=== PATIENT | female | born 1960 | race Caucasian/White ===

== ENCOUNTER 2018-04-09 13:26 | Observation (INO) ==
--- NOTE | 2018-04-09 15:05 | Emergency Department Note ---
Disposition Clinical Impression: Pneumonia, Leukocytosis Disposition: Admitted As Inpatient Condition: Good General Adult HPI - General Chief complaint: ED Neuro Symptoms/Deficit Stated complaint: increased stutter? Time Seen by Provider: 04/09/18 13:50 Source: EMS Limitations: altered mental status, physical limitation, age - History of Present Illness Pain Scale: 7 - Related Data Home Medications Medication Instructions Recorded Confirmed Estradiol [Estrace] 1 mg PO DAILY 12/22/16 04/09/18 Oxycodone HCl/Acetaminophen 1 tab PO Q4H PRN 12/22/16 04/09/18 [Endocet 5-325 Tablet] Paliperidone Palmitate [Invega 156 mg PO QMONTH 04/09/18 04/09/18 Sustenna] Paliperidone [Paliperidone ER] 3 mg PO DAILY 04/09/18 04/09/18 Propranolol [Inderal] 10 mg PO BID 04/09/18 04/09/18 predniSONE [PredniSONE] 10 mg PO DAILY 04/09/18 04/09/18 Previous Rx's Medication Instructions Recorded Albuterol Sulfate [Ventolin Hfa] 2 puff IH Q6H PRN #1 hfa.aer.ad 01/15/18 Cefdinir [Omnicef] 300 mg PO BID #14 capsule 01/15/18 Dicyclomine [Bentyl] 10 mg PO TID #90 capsule 01/15/18 Divalproex (12 HR) [Depakote (12 1,500 mg PO HS #30 tablet. 01/15/18 HR)] Hyoscyamine SL [Levsin Sl] 0.125 mg SL Q4HR PRN #60 tab.subl 01/15/18 Levothyroxine Sodium 50 mcg PO QAM #30 tablet 01/15/18 Omeprazole [PriLOSEC] 40 mg PO BID #30 capsule. 01/15/18 Ondansetron [Zofran] 8 mg PO Q8HR PRN #10 tablet 01/15/18 OxyCODONE/APAP 5/325 [Percocet 1 each PO BID PRN 7 Days #14 tablet 01/15/18 5/325 MG] Promethazine [Phenergan] 25 mg PO Q8HR PRN #15 tablet 01/15/18 Quetiapine Fumarate [Seroquel] 100 mg PO DAILY #30 tablet 01/15/18 Quetiapine Fumarate [Seroquel] 250 mg PO HS #30 tablet 01/15/18 hydrOXYzine pamoate [HydrOXYzine 25 mg PO TID PRN #30 capsule 01/15/18 Pamoate] lamoTRIgine [Lamotrigine] 200 mg PO DAILY #30 tablet 01/15/18 Lidocaine Patch [Lidoderm 5% patch] 1 - 2 each TP DAILY PRN #20 02/25/18 adh..patch Allergies Allergy/AdvReac Type Severity Reaction Status Date / Time Sulfa (Sulfonamide Allergy See Verified 02/03/18 19:43 Antibiotics) Comments naproxen [From Aleve] AdvReac Itching Verified 02/03/18 19:43 Past Medical History - Past Medical History Medical history: Reports: asthma, COPD, GERD, hypertension, myocardial infarction, renal disease, thyroid disease, other Surgical history: Reports: cholecystectomy, hysterectomy Psychiatric history: Reports: bipolar, schizophrenia, previous psychiatric hospitalization FLEXIBLE BABYSITTER history: Reports: no FLEXIBLE BABYSITTER history - Social History Smoking Status: Current every day smoker Smokeless Tobacco Status: No Alcohol use: Reports: none Drug use: Reports: none Physical Exam - General Limitations: altered mental status, physical limitation, age General appearance: lethargic Course Vital Signs Temperature 97.7 F 04/09/18 13:34 Pulse Rate 80 04/09/18 13:34 Respiratory Rate 16 04/09/18 13:34 Blood Pressure 119/65 04/09/18 13:34 O2 Sat by Pulse Oximetry 96 04/09/18 13:34 Temperature 97.7 F 04/09/18 13:34 Pulse Rate 67 04/09/18 15:23 Respiratory Rate 16 04/09/18 15:23 Blood Pressure 105/75 04/09/18 15:23 O2 Sat by Pulse Oximetry 96 04/09/18 15:23 Oxygen Delivery Oxygen Delivery Room Air Medical Decision Making - Lab Data Result diagrams: 04/09/18 15:14 04/09/18 15:14 Lab Results 04/09/18 04/09/18 04/09/18 Range/Units 15:14 15:14 15:14 WBC 17.1 H (4.3-11.1) K/mcL RBC 4.21 (3.82-4.97) M/mcL Hgb 12.5 (11.5-15.4) g/dL Hct 39.2 (35.3-44.9) % MCV 93.1 (83.0-100.0) fL MCH 29.7 (28.0-33.3) pg MCHC 31.9 (31.6-35.5) g/dL RDW 14.2 (11.5-14.5) % Plt Count 281 (140-400) K/mcL MPV 9.1 L (9.4-12.4) fL Immature Gran % 0.5 (0-4) % Seg Neutrophils % 91.1 % Lymphocytes % 6.2 % Monocytes % 2.0 % Eosinophils % 0.1 % Basophils % 0.1 % Neutrophils # 15.6 H (1.6-8.9) K/mcL Lymphocytes # 1.1 (0.6-4.6) K/mcL Monocytes # 0.3 (0.0-1.3) K/mcL Eosinophils # 0.0 (0.0-0.6) K/mcL Basophils # 0.0 (0.0-0.2) K/mcL PT 10.9 (9.4-12.1) Seconds INR 1.0 Sodium 136 (136-145) mEq/L Potassium 4.9 (3.5-5.1) mEq/L Chloride 105 (98-107) mEq/L Carbon Dioxide 27 (23-29) mEq/L BUN 12 (6-20) mg/dL Creatinine 0.76 (0.60-1.20) mg/dL Est GFR ( Amer) > 60 (> 60) Est GFR (Non-Af Amer) > 60 (> 60) BUN/Creatinine Ratio 16 (6-26) Glucose 107 H (70-105) mg/dL Calculated Osmolality 282 (280-300) Lactic Acid (0.5-2.2) mmol/L Calcium 8.6 (8.6-10.3) mg/dL Total Bilirubin 0.2 L (0.3-1.0) mg/dL Direct Bilirubin 0.0 (0.0-0.2) mg/dL Indirect Bilirubin 0.2 (0.0-1.2) mg/dL AST 10 L (13-39) Units/L ALT 5 L (7-52) Units/L Alkaline Phosphatase 99 (34-104) Units/L Troponin I < 0.03 (< 0.04) ng/mL Serum Total Protein 6.7 (6.4-8.9) g/dL Albumin 3.8 (3.5-5.7) g/dL Globulin 2.9 (2.4-3.5) g/dL Albumin/Globulin Ratio 1.3 (1.1-2.2) Lipase 18 (11-82) Units/L Urine Color (Yellow) Urine Clarity (Clear) Urine pH (5.0-8.0) pH Units Ur Specific [place] (1.010-1.025) Urine Protein (Neg-Trace) mg/dL Urine Glucose (UA) (Normal) mg/dL Urine Ketones (Negative) mg/dL Urine Blood (Negative) Urine Nitrite (Negative) Urine Bilirubin (Negative) Urine Urobilinogen (Normal) mg/dL Ur Leukocyte Esterase (Negative) Ur Culture Indicated? (NO) Salicylates 17.1 (15.0-30.0) mg/dL Urine Opiates Screen (Hweagg=289) ng/mL Acetaminophen 17 (10-20) mcg/mL Ur Barbiturates Screen (Asxtzv=200) ng/mL Ur Phencyclidine Scrn (Cutoff=25) ng/mL Ur Amphetamines Screen (Amsiob=7883) ng/mL U Benzodiazepines Scrn (Oufyxy=004) ng/mL Urine Cocaine Screen (Cutoff= 300) ng/mL U Marijuana (THC) Screen (Cutoff = 50) ng/mL Ur Drug Screen Interp Ethyl Alcohol < 10 (Less than 10) mg/dL 04/09/18 04/09/18 04/09/18 Range/Units 15:45 16:32 16:32 WBC (4.3-11.1) K/mcL RBC (3.82-4.97) M/mcL Hgb (11.5-15.4) g/dL Hct (35.3-44.9) % MCV (83.0-100.0) fL MCH (28.0-33.3) pg MCHC (31.6-35.5) g/dL RDW (11.5-14.5) % Plt Count (140-400) K/mcL MPV (9.4-12.4) fL Immature Gran % (0-4) % Seg Neutrophils % % Lymphocytes % % Monocytes % % Eosinophils % % Basophils % % Neutrophils # (1.6-8.9) K/mcL Lymphocytes # (0.6-4.6) K/mcL Monocytes # (0.0-1.3) K/mcL Eosinophils # (0.0-0.6) K/mcL Basophils # (0.0-0.2) K/mcL PT (9.4-12.1) Seconds INR Sodium (136-145) mEq/L Potassium (3.5-5.1) mEq/L Chloride (98-107) mEq/L Carbon Dioxide (23-29) mEq/L BUN (6-20) mg/dL Creatinine (0.60-1.20) mg/dL Est GFR ( Amer) (> 60) Est GFR (Non-Af Amer) (> 60) BUN/Creatinine Ratio (6-26) Glucose (70-105) mg/dL Calculated Osmolality (280-300) Lactic Acid 1.7 (0.5-2.2) mmol/L Calcium (8.6-10.3) mg/dL Total Bilirubin (0.3-1.0) mg/dL Direct Bilirubin (0.0-0.2) mg/dL Indirect Bilirubin (0.0-1.2) mg/dL AST (13-39) Units/L ALT (7-52) Units/L Alkaline Phosphatase (34-104) Units/L Troponin I (< 0.04) ng/mL Serum Total Protein (6.4-8.9) g/dL Albumin (3.5-5.7) g/dL Globulin (2.4-3.5) g/dL Albumin/Globulin Ratio (1.1-2.2) Lipase (11-82) Units/L Urine Color Yellow (Yellow) Urine Clarity Clear (Clear) Urine pH 5.5 (5.0-8.0) pH Units Ur Specific [place] 1.007 L (1.010-1.025) Urine Protein Negative (Neg-Trace) mg/dL Urine Glucose (UA) Normal (Normal) mg/dL Urine Ketones Negative (Negative) mg/dL Urine Blood Negative (Negative) Urine Nitrite Negative (Negative) Urine Bilirubin Negative (Negative) Urine Urobilinogen Normal (Normal) mg/dL Ur Leukocyte Esterase Negative (Negative) Ur Culture Indicated? NO (NO) Salicylates (15.0-30.0) mg/dL Urine Opiates Screen Positive H (Mbjdld=935) ng/mL Acetaminophen (10-20) mcg/mL Ur Barbiturates Screen Negative (Lnhmqq=905) ng/mL Ur Phencyclidine Scrn Negative (Cutoff=25) ng/mL Ur Amphetamines Screen Negative (Zranhz=4061) ng/mL U Benzodiazepines Scrn Negative (Ypwkwi=142) ng/mL Urine Cocaine Screen Negative (Cutoff= 300) ng/mL U Marijuana (THC) Screen Negative (Cutoff = 50) ng/mL Ur Drug Screen Interp See Below Ethyl Alcohol (Less than 10) mg/dL Attestation Statement - Attestation Attestation: I examined this patient and my medical decision-making was reviewed with the Resident Physician. I agree with the documented findings, disposition and treatment plan as described except to the extent set forth below. Patient presents to the emergency department by EMS. She is very difficult to obtain a history from. She states she has been here multiple times for this. When asked why she was here today she states because Dr. Frey's nurse sent her in. When I asked why she called Dr. Frey's office she said the same reason she is been here 5 times. Patient states she was admitted to [facility] with pneumonia. Dr. Gaitan was able to obtain as the patient is here after a near syncopal episode this afternoon. She is in no distress on examination. She does oftentimes slow down to find her words. Started on occasion. Moving all extremities. Abdomen soft. Lungs clear. Plan. Weakness and altered mental status workup. Review her prior visit documentation. Patient with pneumonia. CT head still pending. Patient is given Zithromax and Rocephin. Chest X-Ray 04/09/18 14:53 IMPRESSION: Basilar airspace disease, increased. D/ / Balaji Boone MD / Balaji Boone MD Interpreting Provider: Balaji Boone MD Chest X-Ray 04/09/18 14:53 IMPRESSION: Basilar airspace disease, increased. D/ / Balaji Boone MD / Balaji Boone MD Interpreting Provider: Balaji Boone MD Head CT 04/09/18 15:28 IMPRESSION: No acute intracranial abnormality. D/ / Carl Kumar MD / Carl Kumar MD Interpreting Provider: Carl Kumar MD
[2018-04-09 15:23] LABS: Basophils % 0.1 %; Eosinophils % 0.1 %; Hematocrit 39.2 % (35.3-44.9); Hemoglobin 12.5 g/dL (11.5-15.4); Immature Granulocytes % 0.5 % (0-4); Lymphocytes # 1.1 K/mcL (0.6-4.6); Lymphocytes % 6.2 %; Mean Corpuscular HGB Conc 31.9 g/dL (31.6-35.5); Mean Corpuscular Hemoglobin 29.7 pg (28.0-33.3); Mean Corpuscular Volume 93.1 fL (83.0-100.0); Mean Platelet Volume 9.1 fL (9.4-12.4); Monocytes # 0.3 K/mcL (0.0-1.3); Neutrophils # 15.6 K/mcL (1.6-8.9); Platelet Count 281 K/mcL (140-400); Red Blood Count 4.21 M/mcL (3.82-4.97); Red Cell Distribution Width 14.2 % (11.5-14.5); Segmented Neutrophils % 91.1 %
--- NOTE | 2018-04-09 15:25 | Emergency Department Note ---
Disposition Clinical Impression: Pneumonia Qualifiers: Pneumonia type: due to unspecified organism Laterality: left Lung location: lower lobe of lung Qualified Code(s): J18.1 - Lobar pneumonia, unspecified organism Leukocytosis Qualifiers: Leukocytosis type: unspecified Qualified Code(s): D72.829 - Elevated white blood cell count, unspecified Disposition: Admitted As Inpatient Condition: Good Time of Disposition: 18:20 General Adult HPI - General Chief complaint: ED Neuro Symptoms/Deficit Stated complaint: increased stutter? Time Seen by Provider: 04/09/18 13:50 Source: patient, EMS Mode of arrival: EMS Limitations: no limitations, age Nursing Notes Reviewed: Yes Vital Signs Reviewed: Yes - History of Present Illness HPI Narrative: Patient is a 57 year old female that presents the emergency department stating that her pain management physician center here due to the patient having a recent episode of stuttering. Patient states that she also had a near syncopal episode earlier today. Patient states that she did not pass out or fall. Patient states that she caught herself. Patient states that she has had multiple episodes in the past for she has had full on syncopal episodes as well as near syncopal episodes. Patient denies any nausea vomiting or diarrhea. Patient says that she is having pain in her lower chest or upper abdomen. Patient states that she has been seen multiple times for similar symptoms. Pain Scale: 7 - Related Data Home Medications Medication Instructions Recorded Confirmed Estradiol [Estrace] 1 mg PO DAILY 12/22/16 12/10/17 Oxycodone HCl/Acetaminophen 1 tab PO Q4H PRN 12/22/16 12/10/17 [Endocet 5-325 Tablet] Paliperidone Palmitate [Invega 156 mg PO QMONTH 04/09/18 04/09/18 Sustenna] Paliperidone [Paliperidone ER] 3 mg PO DAILY 04/09/18 04/09/18 Propranolol [Inderal] 10 mg PO BID 04/09/18 04/09/18 predniSONE [PredniSONE] 10 mg PO DAILY 04/09/18 04/09/18 Previous Rx's Medication Instructions Recorded Albuterol Sulfate [Ventolin Hfa] 2 puff IH Q6H PRN #1 hfa.aer.ad 01/15/18 Cefdinir [Omnicef] 300 mg PO BID #14 capsule 01/15/18 Dicyclomine [Bentyl] 10 mg PO TID #90 capsule 01/15/18 Divalproex (12 HR) [Depakote (12 1,500 mg PO HS #30 tablet. 01/15/18 HR)] Hyoscyamine SL [Levsin Sl] 0.125 mg SL Q4HR PRN #60 tab.subl 01/15/18 Levothyroxine Sodium 50 mcg PO QAM #30 tablet 01/15/18 Omeprazole [PriLOSEC] 40 mg PO BID #30 capsule. 01/15/18 Ondansetron [Zofran] 8 mg PO Q8HR PRN #10 tablet 01/15/18 OxyCODONE/APAP 5/325 [Percocet 1 each PO BID PRN 7 Days #14 tablet 01/15/18 5/325 MG] Promethazine [Phenergan] 25 mg PO Q8HR PRN #15 tablet 01/15/18 Quetiapine Fumarate [Seroquel] 100 mg PO DAILY #30 tablet 01/15/18 Quetiapine Fumarate [Seroquel] 250 mg PO HS #30 tablet 01/15/18 hydrOXYzine pamoate [HydrOXYzine 25 mg PO TID PRN #30 capsule 01/15/18 Pamoate] lamoTRIgine [Lamotrigine] 200 mg PO DAILY #30 tablet 01/15/18 Lidocaine Patch [Lidoderm 5% patch] 1 - 2 each TP DAILY PRN #20 02/25/18 adh..patch Allergies Allergy/AdvReac Type Severity Reaction Status Date / Time Sulfa (Sulfonamide Allergy See Verified 02/03/18 19:43 Antibiotics) Comments naproxen [From Aleve] AdvReac Itching Verified 02/03/18 19:43 All systems ED: reviewed and negative except as stated. 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 Absent: respiratory distress, wheezes - Cardiovascular Cardiovascular exam: Present: regular rate, normal rhythm, normal heart sounds, +S1, +S2 - Abdominal Exam Abdominal exam: Present: soft, Non-Tender, normal bowel sounds - Neurological Exam Neurological exam: Present: alert, oriented X3 - Expanded Neurological Exam Speech: Present: fluid speech Cranial nerves: EOM function (II, III, IV, ): Normal, facial sensation (V): Normal, facial palsy (VII): Normal, gag reflex (IX): Normal, spinal accessory function (XI): Normal, tongue deviation (XII): Normal Cerebellar function: finger to nose: Normal, heel to hendrix: Normal Motor strength - LUE: 5/5 Motor strength - RUE: 5/5 Motor strength - LLE: 5/5 Motor strength - RLE: 5/5 Upper motor neuron exam: pronator drift: Absent bilaterally Sensory exam upper extremity: light touch: Normal Sensory exam lower extremity: light touch: Normal Coma Scale Eye Opening: Spontaneous Coma Scale Motor Response: Obeys Commands Coma Scale Verbal Response: Oriented Coma Scale Total: 15 - Psychiatric Psychiatric exam: Present: normal affect, normal mood - Skin Skin exam: Present: warm, dry, intact Course Vital Signs Temperature 97.7 F 04/09/18 13:34 Pulse Rate 80 04/09/18 13:34 Respiratory Rate 16 04/09/18 13:34 Blood Pressure 119/65 04/09/18 13:34 O2 Sat by Pulse Oximetry 96 04/09/18 13:34 Temperature 97.7 F 04/09/18 13:34 Pulse Rate 67 04/09/18 15:23 Respiratory Rate 16 04/09/18 15:23 Blood Pressure 105/75 04/09/18 15:23 O2 Sat by Pulse Oximetry 96 04/09/18 15:23 Oxygen Delivery Oxygen Delivery Room Air Medical Decision Making - MDM Narrative Medical decision making narrative: Due the patient presented to the emergency department with possible near syncope we will obtain basic laboratory testing, EKG, chest x-ray and a CT of the patient's head. Patient does have evidence of pneumonia and will be started on ceftriaxone and azithromycin due to this likely being community acquired pneumonia. EKG did not show any acute ischemic changes. The patient's laboratory testing did have an elevated white count. Patient did not meet sepsis criteria at this time and does not require any fluid bolus at this time. Patient does not require coverage for HCAP due to not been having been hospitalized in the last 90 days. I called and spoke the admitting hospitalist Dr. Renteria and she has accepted the patient to their service. Patient will be a dmitted to the hospital at this time for further valuation management. - Medical Records Medical records reviewed: Yes I reviewed the patient's medical records. - Lab Data Lab results reviewed: Yes I reviewed the patient's lab results. Result diagrams: 04/09/18 15:14 04/09/18 15:14 Lab Results 04/09/18 04/09/18 04/09/18 Range/Units 15:14 15:14 15:14 WBC 17.1 H (4.3-11.1) K/mcL RBC 4.21 (3.82-4.97) M/mcL Hgb 12.5 (11.5-15.4) g/dL Hct 39.2 (35.3-44.9) % MCV 93.1 (83.0-100.0) fL MCH 29.7 (28.0-33.3) pg MCHC 31.9 (31.6-35.5) g/dL RDW 14.2 (11.5-14.5) % Plt Count 281 (140-400) K/mcL MPV 9.1 L (9.4-12.4) fL Immature Gran % 0.5 (0-4) % Seg Neutrophils % 91.1 % Lymphocytes % 6.2 % Monocytes % 2.0 % Eosinophils % 0.1 % Basophils % 0.1 % Neutrophils # 15.6 H (1.6-8.9) K/mcL Lymphocytes # 1.1 (0.6-4.6) K/mcL Monocytes # 0.3 (0.0-1.3) K/mcL Eosinophils # 0.0 (0.0-0.6) K/mcL Basophils # 0.0 (0.0-0.2) K/mcL PT 10.9 (9.4-12.1) Seconds INR 1.0 Sodium 136 (136-145) mEq/L Potassium 4.9 (3.5-5.1) mEq/L Chloride 105 (98-107) mEq/L Carbon Dioxide 27 (23-29) mEq/L BUN 12 (6-20) mg/dL Creatinine 0.76 (0.60-1.20) mg/dL Est GFR ( Amer) > 60 (> 60) Est GFR (Non-Af Amer) > 60 (> 60) BUN/Creatinine Ratio 16 (6-26) Glucose 107 H (70-105) mg/dL Calculated Osmolality 282 (280-300) Lactic Acid (0.5-2.2) mmol/L Calcium 8.6 (8.6-10.3) mg/dL Total Bilirubin 0.2 L (0.3-1.0) mg/dL Direct Bilirubin 0.0 (0.0-0.2) mg/dL Indirect Bilirubin 0.2 (0.0-1.2) mg/dL AST 10 L (13-39) Units/L ALT 5 L (7-52) Units/L Alkaline Phosphatase 99 (34-104) Units/L Troponin I < 0.03 (< 0.04) ng/mL Serum Total Protein 6.7 (6.4-8.9) g/dL Albumin 3.8 (3.5-5.7) g/dL Globulin 2.9 (2.4-3.5) g/dL Albumin/Globulin Ratio 1.3 (1.1-2.2) Lipase 18 (11-82) Units/L Urine Color (Yellow) Urine Clarity (Clear) Urine pH (5.0-8.0) pH Units Ur Specific [place] (1.010-1.025) Urine Protein (Neg-Trace) mg/dL Urine Glucose (UA) (Normal) mg/dL Urine Ketones (Negative) mg/dL Urine Blood (Negative) Urine Nitrite (Negative) Urine Bilirubin (Negative) Urine Urobilinogen (Normal) mg/dL Ur Leukocyte Esterase (Negative) Ur Culture Indicated? (NO) Salicylates 17.1 (15.0-30.0) mg/dL Urine Opiates Screen (Svlkml=621) ng/mL Acetaminophen 17 (10-20) mcg/mL Ur Barbiturates Screen (Mxtork=323) ng/mL Ur Phencyclidine Scrn (Cutoff=25) ng/mL Ur Amphetamines Screen (Syqbjt=2391) ng/mL U Benzodiazepines Scrn (Banrsh=512) ng/mL Urine Cocaine Screen (Cutoff= 300) ng/mL U Marijuana (THC) Screen (Cutoff = 50) ng/mL Ur Drug Screen Interp Ethyl Alcohol < 10 (Less than 10) mg/dL 04/09/18 04/09/18 04/09/18 Range/Units 15:45 16:32 16:32 WBC (4.3-11.1) K/mcL RBC (3.82-4.97) M/mcL Hgb (11.5-15.4) g/dL Hct (35.3-44.9) % MCV (83.0-100.0) fL MCH (28.0-33.3) pg MCHC (31.6-35.5) g/dL RDW (11.5-14.5) % Plt Count (140-400) K/mcL MPV (9.4-12.4) fL Immature Gran % (0-4) % Seg Neutrophils % % Lymphocytes % % Monocytes % % Eosinophils % % Basophils % % Neutrophils # (1.6-8.9) K/mcL Lymphocytes # (0.6-4.6) K/mcL Monocytes # (0.0-1.3) K/mcL Eosinophils # (0.0-0.6) K/mcL Basophils # (0.0-0.2) K/mcL PT (9.4-12.1) Seconds INR Sodium (136-145) mEq/L Potassium (3.5-5.1) mEq/L Chloride (98-107) mEq/L Carbon Dioxide (23-29) mEq/L BUN (6-20) mg/dL Creatinine (0.60-1.20) mg/dL Est GFR ( Amer) (> 60) Est GFR (Non-Af Amer) (> 60) BUN/Creatinine Ratio (6-26) Glucose (70-105) mg/dL Calculated Osmolality (280-300) Lactic Acid 1.7 (0.5-2.2) mmol/L Calcium (8.6-10.3) mg/dL Total Bilirubin (0.3-1.0) mg/dL Direct Bilirubin (0.0-0.2) mg/dL Indirect Bilirubin (0.0-1.2) mg/dL AST (13-39) Units/L ALT (7-52) Units/L Alkaline Phosphatase (34-104) Units/L Troponin I (< 0.04) ng/mL Serum Total Protein (6.4-8.9) g/dL Albumin (3.5-5.7) g/dL Globulin (2.4-3.5) g/dL Albumin/Globulin Ratio (1.1-2.2) Lipase (11-82) Units/L Urine Color Yellow (Yellow) Urine Clarity Clear (Clear) Urine pH 5.5 (5.0-8.0) pH Units Ur Specific [place] 1.007 L (1.010-1.025) Urine Protein Negative (Neg-Trace) mg/dL Urine Glucose (UA) Normal (Normal) mg/dL Urine Ketones Negative (Negative) mg/dL Urine Blood Negative (Negative) Urine Nitrite Negative (Negative) Urine Bilirubin Negative (Negative) Urine Urobilinogen Normal (Normal) mg/dL Ur Leukocyte Esterase Negative (Negative) Ur Culture Indicated? NO (NO) Salicylates (15.0-30.0) mg/dL Urine Opiates Screen Positive H (Nomxbd=551) ng/mL Acetaminophen (10-20) mcg/mL Ur Barbiturates Screen Negative (Fctdiu=759) ng/mL Ur Phencyclidine Scrn Negative (Cutoff=25) ng/mL Ur Amphetamines Screen Negative (Bmckmj=2629) ng/mL U Benzodiazepines Scrn Negative (Flcfbk=625) ng/mL Urine Cocaine Screen Negative (Cutoff= 300) ng/mL U Marijuana (THC) Screen Negative (Cutoff = 50) ng/mL Ur Drug Screen Interp See Below Ethyl Alcohol (Less than 10) mg/dL - Radiology Data Radiology results reviewed: Yes I reviewed the patient's radiology results. Chest X-Ray 04/09/18 14:53 IMPRESSION: Basilar airspace disease, increased. D/ / Balaji Boone MD / Balaji Boone MD Interpreting Provider: Balaji Boone MD Head CT 04/09/18 15:28 IMPRESSION: No acute intracranial abnormality. D/ / Carl Kumar MD / Carl Kumar MD Interpreting Provider: Carl Kumar MD - EKG Data EKG #1 EKG attestation: Yes I reviewed and interpreted this EKG. EKG results narrative: EKG shows sinus rhythm at a rate of 66 bpm, DC interval 136, curious duration 75, QTC of 390. There is no evidence of STEMI on EKG. This was compared to previous EKG on 02/02/18 which showed a sinus rhythm at 86 bpm.
[2018-04-09 15:31] LABS: Prothrombin Time 10.9 Seconds (9.4-12.1)
[2018-04-09 15:43] LABS: Acetaminophen 17 mcg/mL (10-20); Alanine Aminotransferase 5 Units/L (7-52); Albumin 3.8 g/dL (3.5-5.7); Albumin/Globulin Ratio 1.3 (1.1-2.2); Alkaline Phosphatase 99 Units/L (34-104); Aspartate Amino Transferase 10 Units/L (13-39); BUN/Creatinine Ratio 16 (6-26); Bilirubin,Indirect 0.2 mg/dL (0.0-1.2); Bilirubin,Total 0.2 mg/dL (0.3-1.0); Blood Urea Nitrogen 12 mg/dL (6-20); Calcium 8.6 mg/dL (8.6-10.3); Carbon Dioxide 27 mEq/L (23-29); Chloride 105 mEq/L (98-107); Ethanol < 10 mg/dL (Less than 10); Globulin 2.9 g/dL (2.4-3.5); Glucose 107 mg/dL (70-105); Lipase 18 Units/L (11-82); Osmolality,Calculated 282 (280-300); Potassium 4.9 mEq/L (3.5-5.1); Salicylate 17.1 mg/dL (15.0-30.0); Sodium 136 mEq/L (136-145); Total Protein 6.7 g/dL (6.4-8.9); Troponin I < 0.03 ng/mL (< 0.04); eGFR For Non-African Americans > 60 (> 60)
[2018-04-09] MEDS ORDERED: Azithromycin 500 MG in D5% in Water 250 ML IVPB ONE (16:04)
[2018-04-09] MEDS ORDERED: cefTRIAXone 1,000 MG in Water for inj. (sterile) 20 ML 10 ML IVP ONE (16:04)
[2018-04-09 16:54] LABS: Bilirubin,Urine Negative (Negative); Blood,Urine Negative (Negative); Clarity,Urine Clear (Clear); Color,Urine Yellow (Yellow); Glucose,Urine (UA) Normal (Normal); Ketones,Urine Negative (Negative); Leukocyte Esterase,Urine Negative (Negative); Nitrite,Urine Negative (Negative); PH,Urine 5.5 pH Units (5.0-8.0); Protein,Urine Negative (Neg-Trace); Specific Gravity,Urine 1.007 (1.010-1.025); Urobilinogen,Urine Normal (Normal)
[2018-04-09 17:13] LABS: Amphetamine Screen,Urine Negative ng/mL (Cutoff=1000); Barbiturate Screen,Urine Negative ng/mL (Cutoff=200); Benzodiazepines Screen,Urine Negative ng/mL (Cutoff=200); Cannabinoid Screen,Urine Negative ng/mL (Cutoff = 50); Cocaine Screen,Urine Negative ng/mL (Cutoff= 300); Opiate Screen,Urine Positive ng/mL (Cutoff=300); Phencyclidine Screen,Urine Negative ng/mL (Cutoff=25)
[2018-04-09] MEDS ORDERED: Naloxone 0.4 MG/ML INJ IVP PRN (18:07)
--- NOTE | 2018-04-09 18:13 | Internal Med History&Physical ---
Date of Encounter: 04/09/18 Time of Encounter: 18:07 Internal Medicine - H&P: HPI Chief complaint: lalyterashley Admitted From: Home Plans for Post Hospital Care: Home History of present illness: Ms. Chávez is a 57 year old female past medical history of bipolar disorder, COPD, hypertension, GERD, CAD, hypothyroidism was sent by her primary care physician because of stuttering. History obtained from patient as well as year charts in previous charts. History obtained from patient less reliable. Patient mentions that she was sent by her primary care physician because she was having more than usual stuttering and he was suspicion of stroke. She denies having strokes in past. She mentions whenever she states she gets stuttering. Denies any weakness numbness or difficulty walking. She did complain of associated on and off palpitation. Had chest pain on her left side since past 2 days which is more or less constant. The pain woke her up 2 days ago during the night. Denies any nausea vomiting. Did mention possible near syncopal episode. Denies any fevers but admits to some chills. She was treated for pneumonia in April. Denies any recent falls or injury. She denies having any psychiatric disorder however previous documentation mentions she has bipolar disorder. She continues to smoke. She lives by herself with 2 dogs and has home health to help her. She denies IV drug use. In ER patient was pontine to have white count of 17 along with chest x-ray with left lower lobe opacity which has increased. She had a head CT which was unremarkable. She received dose of ceftriaxone and azithromycin in ER. U tox positive for opiates. Admission was requested for pneumonia. Past Med Surg Social Fam HX - Past Medical History Attestation: Yes The following information was validated with the patient. Medical history: COPD, GERD, hypertension, myocardial infarction, thyroid disease, other Additional medical history: Lump on left breast Psychiatric history: other (denies pyschiatric problems but previously here with bipolar disorder,) - Past Surgical History Surgical History: cholecystectomy, hysterectomy Additional surgical history: "stones removed from liver.". Tonsils - Social History Smoking Status: Current every day smoker Smokeless Tobacco Status: No Alcohol use: none Drug use: none Current living situation: Home - Family History Mother Adopted: No Family Member Ethnicity: Non- Living Status: Hx Family Cardiac Disorders: Yes Hx Family Respiratory Disorders: Yes Hx Family Cancer: Yes Hx Family GI Disorders: Yes Hx Family Endocrine Disorder: No Hx Family Neuromuscular Disorders: No Hx Family Neurologic Disorders: No Hx Family HEENT Disorders: No Hx Family Autoimmune Disorders: No Internal Medicine - H&P: Meds Estradiol [Estrace] 1 mg PO DAILY 12/22/16 [History] Oxycodone HCl/Acetaminophen [Endocet 5-325 Tablet] 1 tab PO Q4H PRN 12/22/16 [History] Albuterol Sulfate [Ventolin Hfa] 2 puff IH Q6H PRN #1 hfa.aer.ad 01/15/18 [Rx] Cefdinir [Omnicef] 300 mg PO BID #14 capsule 01/15/18 [Rx] Dicyclomine [Bentyl] 10 mg PO TID #90 capsule 01/15/18 [Rx] Hyoscyamine SL [Levsin Sl] 0.125 mg SL Q4HR PRN #60 tab.subl 01/15/18 [Rx] Levothyroxine Sodium 50 mcg PO QAM #30 tablet 01/15/18 [Rx] Omeprazole [PriLOSEC] 40 mg PO BID #30 capsule.dr 01/15/18 [Rx] Ondansetron [Zofran] 8 mg PO Q8HR PRN #10 tablet 01/15/18 [Rx] OxyCODONE/APAP 5/325 [Percocet 5/325 MG] 1 each PO BID PRN 7 Days #14 tablet 01/15/18 [Rx] Promethazine [Phenergan] 25 mg PO Q8HR PRN #15 tablet 01/15/18 [Rx] Quetiapine Fumarate [Seroquel] 100 mg PO DAILY #30 tablet 01/15/18 [Rx] Quetiapine Fumarate [Seroquel] 250 mg PO HS #30 tablet 01/15/18 [Rx] hydrOXYzine pamoate [HydrOXYzine Pamoate] 25 mg PO TID PRN #30 capsule 01/15/18 [Rx] lamoTRIgine [Lamotrigine] 200 mg PO DAILY #30 tablet 01/15/18 [Rx] Lidocaine Patch [Lidoderm 5% patch] 1 - 2 each TP DAILY PRN #20 adh..patch 02/25/18 [Rx] Divalproex (24 HR) [Depakote ER (24 HR)] 1,500 mg PO HS 04/09/18 [History] Paliperidone Palmitate [Invega Sustenna] 156 mg PO QMONTH 04/09/18 [History] Paliperidone [Paliperidone ER] 3 mg PO DAILY 04/09/18 [History] Propranolol [Inderal] 10 mg PO BID 04/09/18 [History] predniSONE [PredniSONE] 10 mg PO DAILY 04/09/18 [History] Allergy/AdvReac Type Severity Reaction Status Date / Time Sulfa (Sulfonamide Allergy See Verified 02/03/18 19:43 Antibiotics) Comments naproxen [From Aleve] AdvReac Itching Verified 02/03/18 19:43 All Systems PM: A 10-system review of systems was performed and is negative for pertinent findings except as documented above in the HPI. - Constitutional Vitals: Temp Pulse Resp BP Pulse Ox 97.7 F 67 16 105/75 96 04/09/18 13:34 04/09/18 15:23 04/09/18 15:23 04/09/18 15:23 04/09/18 15:23 Exam: Constitutional: Vitals as noted. Conversant. No Apparent Distress. No obvious deformities. Occasionally stutters and pauses while speaking. Eyes : Sclera white, conjunctiva clear, no lid lag, PEARLA. ENT : Grossly normal hearing. Oropharyngeal exam unremarkable. Moist mucus membranes. No JVD, no cervical lymphadenopathy. no thyromegaly or mass. Respiratory : Bronchial breath sounds on LLL. No accessory muscle use, rales, rhonchi or wheezes. Tenderness on deep pressure on Lt side of the chest. Cardiovascular : RRR, +S1, +S2. no murmur, gallop, rubs. No chest wall tenderness GI/Abdominal : Soft, Non-tender, Non-distended, normal bowel sounds, soft, no peritoneal signs. no orgenomegaly or mass appreciated. no hernia. Musculoskeletal: no deformity noted. no edema or cyanosis. warm extremities, pulses palpable and symmetrical in UE/LE. no calf tenderness. Neurological: AO X3, CN II-XII grossly intact, grossly normal motor and sensory exam. Occasional stuterring Skin: No skin rash, lesions or ulcers noted. Pych: memory impaired. AOx3. Looses train of thought frequently. Internal Med - H&P Results - Labs CBC & Chem 7: 04/09/18 15:14 04/09/18 15:14 Labs: Short CBC 04/09/18 Range/Units 15:14 WBC 17.1 H (4.3-11.1) K/mcL Hgb 12.5 (11.5-15.4) g/dL Hct 39.2 (35.3-44.9) % Plt Count 281 (140-400) K/mcL Neutrophils # 15.6 H (1.6-8.9) K/mcL BMP 04/09/18 15:14 Sodium 136 Potassium 4.9 Chloride 105 Carbon Dioxide 27 BUN 12 Creatinine 0.76 Glucose 107 H Calcium 8.6 Cardiac Enzymes 04/09/18 Range/Units 15:14 Troponin I < 0.03 (< 0.04) ng/mL Liver Function 04/09/18 Range/Units 15:14 Total Bilirubin 0.2 L (0.3-1.0) mg/dL Direct Bilirubin 0.0 (0.0-0.2) mg/dL AST 10 L (13-39) Units/L ALT 5 L (7-52) Units/L Alkaline Phosphatase 99 (34-104) Units/L Albumin 3.8 (3.5-5.7) g/dL Urine 04/09/18 Range/Units 16:32 Urine Color Yellow (Yellow) Urine Clarity Clear (Clear) Urine pH 5.5 (5.0-8.0) pH Units Ur Specific [place] 1.007 L (1.010-1.025) Urine Protein Negative (Neg-Trace) mg/dL Urine Glucose (UA) Normal (Normal) mg/dL - EKG Data -: EKG Interpreted by Myself Rate: normal - Impressions ITS Impressions Chest X-Ray 04/09/18 14:53 IMPRESSION: Basilar airspace disease, increased. D/ / Balaji Boone MD / Balaji Boone MD Interpreting Provider: Balaji Boone MD Head CT 04/09/18 15:28 IMPRESSION: No acute intracranial abnormality. D/ / Carl Kumar MD / Carl Kumar MD Interpreting Provider: Carl Kumar MD - Assessment and plan (1) Pneumonia Current Visit: Yes Status: Acute Assessment and plan: - Continue patient on ceftriaxone and azithromycin for community quadrant pneumo sandra - Follow up blood and sputum cultures - Continue home pain medication Qualifiers: Pneumonia type: due to unspecified organism Laterality: left Qualified Code(s): J18.1 - Lobar pneumonia, unspecified organism (2) Chest pain Current Visit: Yes Status: Acute Assessment and plan: - Trend troponin 3 - Nonexertional nonradiating. - currently chest pain-free without any EKG changes - Less likely to be cardiac Qualifiers: Qualified Code(s): R07.9 - Chest pain, unspecified (3) Bipolar disorder Current Visit: Yes Status: Acute Assessment and plan: - Continue home medication - consult pyschiatry for need for adjustment of her medication. Qualifiers: Qualified Code(s): F31.9 - Bipolar disorder, unspecified (4) Hypothyroidism Current Visit: No Status: Chronic Assessment and plan: - Continue home levothyroxine Qualifiers: Hypothyroidism type: other Qualified Code(s): E03.8 - Other specified hypothyroidism - Time Spent With Patient Total time spent is greater than 50% in coordination of care (as documented) at patient's floor/unit and/or counseling patient:
[2018-04-09] MEDS ORDERED: Hyoscyamine SL 0.125 MG TAB.SUBL SL PRN (18:19)
[2018-04-09] MEDS ORDERED: hydrOXYzine pamoate 25 MG CAPSULE PO PRN (18:19)
[2018-04-09] MEDS: *HR* OxyCODONE/APAP 5/325 TABLET PO PRN (20:42)
[2018-04-09] MEDS: D5% in 0.45% NACL 1,000 ML IVC SCH (20:43)
[2018-04-09] MEDS ORDERED: Divalproex (24 HR) 500 MG TABLET PO SCH (21:00)
[2018-04-09 22:48] LABS: Adenovirus Not Detected (Not Detect); Bordetella Pertussis Not Detected (Not Detect); Chlamydophila pneumoniae Not Detected (Not Detect); Coronavirus 229E Not Detected (Not Detect); Coronavirus HKU1 Not Detected (Not Detect); Coronavirus NL63 Not Detected (Not Detect); Coronavirus OC43 Not Detected (Not Detect); Human Metapneumovirus Not Detected (Not Detect); Human Rhinovirus/Enterovirus DETECTED (Not Detect); Influenza A Subtype 2009 H1 Not Detected (Not Detect); Influenza A Untypeable Not Detected (Not Detect); Influenza B Not Detected (Not Detect); Mycoplasma pneumoniae Not Detected (Not Detect); Parainfluenza Virus 1 Not Detected (Not Detect); Parainfluenza Virus 2 Not Detected (Not Detect); Parainfluenza Virus 3 Not Detected (Not Detect); Parainfluenza Virus 4 Not Detected (Not Detect); Respiratory Syncytial Virus Not Detected (Not Detect)
[2018-04-10 04:56] LABS: Basophils % 0.2 %; Eosinophils # 0.2 K/mcL (0.0-0.6); Eosinophils % 1.2 %; Hematocrit 36.2 % (35.3-44.9); Hemoglobin 11.5 g/dL (11.5-15.4); Immature Granulocytes % 0.5 % (0-4); Lymphocytes % 23.5 %; Mean Corpuscular HGB Conc 31.8 g/dL (31.6-35.5); Mean Corpuscular Hemoglobin 29.6 pg (28.0-33.3); Mean Corpuscular Volume 93.1 fL (83.0-100.0); Mean Platelet Volume 9.2 fL (9.4-12.4); Monocytes # 0.7 K/mcL (0.0-1.3); Monocytes % 5.3 %; Platelet Count 291 K/mcL (140-400); Red Blood Count 3.89 M/mcL (3.82-4.97); Red Cell Distribution Width 14.2 % (11.5-14.5); Segmented Neutrophils % 69.3 %
[2018-04-10 05:12] LABS: BUN/Creatinine Ratio 18 (6-26); Blood Urea Nitrogen 13 mg/dL (6-20); Calcium 8.1 mg/dL (8.6-10.3); Carbon Dioxide 27 mEq/L (23-29); Chloride 106 mEq/L (98-107); Glucose 98 mg/dL (70-105); Osmolality,Calculated 284 (280-300); Potassium 4.2 mEq/L (3.5-5.1); Sodium 137 mEq/L (136-145); eGFR For Non-African Americans > 60 (> 60)
[2018-04-10] MEDS: D5% in 0.45% NACL 1,000 ML IVC SCH (07:49)
[2018-04-10] MEDS: *HR* OxyCODONE/APAP 5/325 TABLET PO PRN (07:49)
[2018-04-10] MEDS ORDERED: Nicotine 7 MG PATCH.TD24 TD SCH (09:00)
[2018-04-10] MEDS ORDERED: predniSONE 10 MG TABLET PO SCH (09:00)
[2018-04-10] MEDS ORDERED: lamoTRIgine 100 MG TABLET PO SCH (09:00)
[2018-04-10 10:10] VITALS: BP 92/54
[2018-04-10] MEDS ORDERED: Benzonatate 100 MG CAPSULE PO PRN (11:40)
--- NOTE | 2018-04-10 12:10 | Discharge Summary ---
- NOTES TO OUTPATIENT PROVIDER Notes to Outpatient Provider: Likely had viral pneumonia. All antibiotics stopped. Monitor off antibiotics within a week Orders not resulted at time of discharge: Pending orders 04/09/18 14:53 ECG 12 lead ECG [ECG] Stat 04/09/18 15:34 Culture,Blood [BC] Stat 04/09/18 18:16 Culture,Sputum with Gram Stain [RM] Stat Date of Encounter: 04/10/18 Time of Encounter: 12:05 - Discharge Diagnosis (1) Chest pain Priority: Primary Status: Acute Qualifiers: Qualified Code(s): R07.9 - Chest pain, unspecified (2) Bipolar disorder Priority: Secondary Status: Acute Qualifiers: Qualified Code(s): F31.9 - Bipolar disorder, unspecified (3) Hypothyroidism Priority: Secondary Status: Chronic Qualifiers: Hypothyroidism type: other Qualified Code(s): E03.8 - Other specified hypothyroidism (4) Viral pneumonia Priority: Primary Status: Acute Hospital course: Ms. Chávez is a 57 year old female past medical history of bipolar disorder, COPD, hypertension, hypothyroidism came in with complain of stuttering and chest pain was found to have worsening chest x-ray infiltrate. Patient had leukocytosis of 17 however was stable otherwise. Was started on treatment for community-acquired pneumonia with ceftriaxone and azithromycin. Legionella antigen and streptococcal antigen were negative. Viral respiratory panel is positive for anterolateral rhino virus. Patient does not appear significantly septic. All antibiotics were stopped on discharge given patient most likely has viral pneumonia. Patient had negative troponins 3 and EKG without any ischemic changes. Patient to take [id number] Tessalon Perles and acetaminophen for pain and cough for symptomatic control. Patient would follow up with PCP within a week. Discussed symptom which should make her to come to ER. - Time Spent with Patient Total time spent providing and/or coordinating discharge services: Greater than 30 minutes (36) - Discharge Medications Home Medications: Estradiol [Estrace] 1 mg PO DAILY 12/22/16 [History] Oxycodone HCl/Acetaminophen [Endocet 5-325 Tablet] 1 tab PO Q4H PRN 12/22/16 [History] Albuterol Sulfate [Ventolin Hfa] 2 puff IH Q6H PRN #1 hfa.aer.ad 01/15/18 [Rx] Dicyclomine [Bentyl] 10 mg PO TID #90 capsule 01/15/18 [Rx] Hyoscyamine SL [Levsin Sl] 0.125 mg SL Q4HR PRN #60 tab.subl 01/15/18 [Rx] Levothyroxine Sodium 50 mcg PO QAM #30 tablet 01/15/18 [Rx] Omeprazole [PriLOSEC] 40 mg PO BID #30 capsule.dr 01/15/18 [Rx] Ondansetron [Zofran] 8 mg PO Q8HR PRN #10 tablet 01/15/18 [Rx] OxyCODONE/APAP 5/325 [Percocet 5/325 MG] 1 each PO BID PRN 7 Days #14 tablet 01/15/18 [Rx] Promethazine [Phenergan] 25 mg PO Q8HR PRN #15 tablet 01/15/18 [Rx] Quetiapine Fumarate [Seroquel] 100 mg PO DAILY #30 tablet 01/15/18 [Rx] Quetiapine Fumarate [Seroquel] 250 mg PO HS #30 tablet 01/15/18 [Rx] hydrOXYzine pamoate [HydrOXYzine Pamoate] 25 mg PO TID PRN #30 capsule 01/15/18 [Rx] lamoTRIgine [Lamotrigine] 200 mg PO DAILY #30 tablet 01/15/18 [Rx] Lidocaine Patch [Lidoderm 5% patch] 1 - 2 each TP DAILY PRN #20 adh..patch 02/25/18 [Rx] Divalproex (24 HR) [Depakote ER (24 HR)] 1,500 mg PO HS 04/09/18 [History] Paliperidone Palmitate [Invega Sustenna] 156 mg PO QMONTH 04/09/18 [History] Paliperidone [Paliperidone ER] 3 mg PO DAILY 04/09/18 [History] Propranolol [Inderal] 10 mg PO BID 04/09/18 [History] predniSONE [PredniSONE] 10 mg PO DAILY 04/09/18 [History] Allergies/Adverse Reactions: Allergy/AdvReac Type Severity Reaction Status Date / Time Sulfa (Sulfonamide Allergy See Verified 02/03/18 19:43 Antibiotics) Comments naproxen [From Aleve] AdvReac Itching Verified 09/12/18 19:43 Date of admission: 04/09/18 17:30 Primary care physician: Venkatesh Borges MD Consults: 04/09/18 18:37 Consult to Psychiatry [CONS] Routine Consulting Provider: Psychiatry Ivon Reason consult: Confusion Discharging clinician: Chandu Jin - Constitutional Vitals: Temp Pulse Resp BP Pulse Ox 98.3 F 69 14 92/54 92 04/10/18 10:09 04/10/18 10:09 04/10/18 10:09 04/10/18 10:09 04/10/18 10:09 Exam: Constitutional: Vitals as noted. Conversant. No Apparent Distress. No obvious deformities. Occasionally stutters and pauses while speaking. Respiratory : Bronchial breath sounds on LLL. No accessory muscle use, rales, rhonchi or wheezes. Cardiovascular : RRR, +S1, +S2. no murmur, gallop, rubs. No chest wall tenderness GI/Abdominal : Soft, Non-tender, Non-distended, normal bowel sounds, soft, no peritoneal signs. no orgenomegaly or mass appreciated. no hernia. Musculoskeletal: no deformity noted. no edema or cyanosis. warm extremities, pulses palpable and symmetrical in UE/LE. no calf tenderness. Neurological: AO X3, CN II-XII grossly intact, grossly normal motor and sensory exam. Occasional stuterring Skin: No skin rash, lesions or ulcers noted. - Patient Status Disposition: Home, Self-Care Condition: Good - Discharge Instructions Follow Up With: Venkatesh Borges MD [Primary Care Provider] - - Diet and Activity Activity: resume usual activities as tolerated
[2018-04-10] MEDS ORDERED: Azithromycin 250 MG in D5% in Water 250 ML IVPB SCH (17:00)
[2018-04-10] MEDS ORDERED: cefTRIAXone 1,000 MG in Water for inj. (sterile) 20 ML 10 ML IVP SCH (17:00)
--- NOTE | 2018-04-12 17:43 | Electrocardiograph Report ---
[place] [id number] Test Date: 2018-04-09 Pat Name: Brianne Chávez Department: [id number] Room: 3A13 Gender: F Specialist Field Engineer: : [id number] Requested By: Keanu Gaitan Order Number: [id number] Reading MD: Evelina Starkey Measurements Intervals [place] Rate: 66 P: 45 [place]: 136 QRS: 20 QRSD: 75 T: 34 QT: 372 QTc: 390 Interpretive Statements Sinus rhythm Probable left atrial enlargement Baseline wander in lead(s) V4-V5 Electronically Signed On 04-12-2018 17:42:38 EST by Evelina Starkey
== END 2018-04-10 13:01 | disposition home or self-care (01) ==
LOC: EMEROOARM 13:26 → 3ANU 13:26 → SUATTDRO 17:30 → 3ANU 20:03
PROVIDERS: ADMIT Internal Medicine; ATTEND Internal Medicine

== ENCOUNTER 2020-11-20 23:20 | Inpatient (IN) ==
[2020-11-21] MEDS ORDERED: Isovue-370 500 ML BOTTLE IVP ONE (00:50)
[2020-11-21] MEDS ORDERED: Ondansetron 4 MG/2 ML VIAL IVP ONE (00:52)
[2020-11-21] MEDS ORDERED: 0.9 % Sodium Chloride 1,000 ML IVC ONE (00:53)
[2020-11-21 02:16] LABS: Basophils % 0.1 %; Hematocrit 37.6 % (35.3-44.9); Hemoglobin 12.4 g/dL (11.5-15.4); Immature Granulocytes % 0.5 % (0-4); Lymphocytes % 6.5 %; Mean Corpuscular Volume 87.9 fL (83.0-100.0); Mean Platelet Volume 10.1 fL (9.4-12.4); Monocytes # 0.6 K/mcL (0.0-1.3); Monocytes % 4.1 %; Neutrophils # 13.1 K/mcL (1.6-8.9); Platelet Count 298 K/mcL (140-400); Red Blood Count 4.28 M/mcL (3.82-4.97); Segmented Neutrophils % 88.8 %; White Blood Count 14.7 K/mcL (4.3-11.1)
[2020-11-21 02:21] LABS: Acetaminophen < 10 mcg/mL (10-20); Alanine Aminotransferase 16 Units/L (7-52); Albumin 3.6 g/dL (3.5-5.7); Alkaline Phosphatase 155 Units/L (34-104); Aspartate Amino Transferase 20 Units/L (13-39); BUN/Creatinine Ratio 20 (6-26); Bilirubin,Direct 0.2 mg/dL (0.0-0.2); Bilirubin,Indirect 0.4 mg/dL (0.0-1.0); Bilirubin,Total 0.6 mg/dL (0.3-1.0); Blood Urea Nitrogen 11 mg/dL (6-20); Calcium 9.5 mg/dL (8.6-10.3); Carbon Dioxide 27 mEq/L (23-29); Chloride 97 mEq/L (98-107); Chol/HDL Ratio 5.6 (0-4.9); Cholesterol 184 mg/dL (< 200); Ethanol < 10 mg/dL (Less than 10); Globulin 3.6 g/dL (2.4-3.5); Glucose 127 mg/dL (70-105); HDL Cholesterol 33 mg/dL (40-59); LDL Cholesterol,Calculated 127 mg/dL (< 100); Lipase 3 Units/L (11-82); Osmolality,Calculated 297 (280-300); Potassium 2.5 mEq/L (3.5-5.1); Salicylate < 2.5 mg/dL (15.0-30.0); Sodium 143 mEq/L (136-145); Total Protein 7.2 g/dL (6.4-8.9); Triglycerides 118 mg/dL (< 150); eGFR For African Americans > 60 (> 60); eGFR For Non-African Americans > 60 (> 60)
[2020-11-21 03:24] LABS: Bilirubin,Urine Negative (Negative); Blood,Urine Trace (Negative); Clarity,Urine Clear (Clear); Color,Urine Light-Orange (Yellow); Glucose,Urine (UA) Normal (Normal); Ketones,Urine 80 mg/dL (Negative); Leukocyte Esterase,Urine Negative (Negative); Mucus,Urine Many per lpf (None-Few); Nitrite,Urine Negative (Negative); PH,Urine 6.5 pH Units (5.0-8.0); Protein,Urine 50 mg/dL (Neg-Trace); Specific Gravity,Urine > 1.030 (1.010-1.025); Urobilinogen,Urine Normal (Normal)
[2020-11-21 03:42] LABS: Amphetamine Screen,Urine Negative ng/mL (Cutoff=1000); Barbiturate Screen,Urine Negative ng/mL (Cutoff=200); Benzodiazepines Screen,Urine Negative ng/mL (Cutoff=200); Cannabinoid Screen,Urine Negative ng/mL (Cutoff = 50); Cocaine Screen,Urine Negative ng/mL (Cutoff= 300); Opiate Screen,Urine Negative ng/mL (Cutoff=300); Phencyclidine Screen,Urine Negative ng/mL (Cutoff=25)
[2020-11-21] MEDS ORDERED: Piperacillin/Tazobactam 3.375 GM in 0.9 % Sodium Chloride Mini Bag 100 ML IVPB ONE (04:27)
[2020-11-21 04:29] LABS: ABG Base Excess 0 mEq/L (-2 to 3); ABG HCO3 24 mEq/L (21-27); ABG Oxygen Saturation 97 % (95-98); ABG PCO2 35 mmHg (35-45); ABG PH 7.44 pH Units (7.32-7.45); ABG PO2 82 mmHg (85-104); ABG TCO2 25 mEq/L (20-26)
[2020-11-21 06:12] LABS: Adenovirus Not Detected (Not Detect); Bordetella Pertussis Not Detected (Not Detect); Chlamydophila pneumoniae Not Detected (Not Detect); Coronavirus 229E Not Detected (Not Detect); Coronavirus HKU1 Not Detected (Not Detect); Coronavirus NL63 Not Detected (Not Detect); Coronavirus OC43 Not Detected (Not Detect); Human Metapneumovirus Not Detected (Not Detect); Human Rhinovirus/Enterovirus Not Detected (Not Detect); Influenza A Subtype 2009 H1 Not Detected (Not Detect); Influenza B Not Detected (Not Detect); Mycoplasma pneumoniae Not Detected (Not Detect); Parainfluenza Virus 1 Not Detected (Not Detect); Parainfluenza Virus 2 Not Detected (Not Detect); Parainfluenza Virus 3 Not Detected (Not Detect); Parainfluenza Virus 4 Not Detected (Not Detect); Respiratory Syncytial Virus Not Detected (Not Detect); SARS-CoV-2 Not Detected (Not Detect)
[2020-11-21] MEDS ORDERED: Ondansetron 4 MG/2 ML VIAL IVP PRN (07:57)
[2020-11-21] MEDS ORDERED: Perflutren Lipid Microsphere 1.3 ML in 0.9 % Sodium Chloride 8.7 ML IVP PRN (08:04)
[2020-11-21] MEDS ORDERED: Potassium Chloride 40 MEQ, Lidocaine 1% 2 ML in 0.9 % Sodium Chloride 500 ML IVPB ONE (08:05)
[2020-11-21] MEDS: Furosemide 20 MG/2 ML VIAL IVP SCH ×2 (10:06→20:10)
[2020-11-21] MEDS: cefTRIAXone 2,000 MG in Water for inj. (sterile) 20 ML IVP SCH (10:07)
[2020-11-21] MEDS: Azithromycin 500 MG in 0.9 % Sodium Chloride 250 ML IVPB SCH (10:08)
[2020-11-21 10:21] LABS: Magnesium 2.1 mg/dL (1.6-2.6)
[2020-11-21] MEDS: Acetaminophen 325 MG TABLET PO PRN (11:27)
[2020-11-21] MEDS: Nicotine 21 MG PATCH.TD24 TD SCH (12:24)
[2020-11-21] MEDS ORDERED: GI Cocktail 40 ML EACH PO ONE ×2 (13:12→13:14)
[2020-11-21] MEDS: Gabapentin 300 MG CAPSULE PO SCH (20:08)
[2020-11-21] MEDS: Divalproex (24 HR) 500 MG TABLET PO SCH (20:09)
[2020-11-22 04:20] LABS: Hematocrit 32.9 % (35.3-44.9); Hemoglobin 10.9 g/dL (11.5-15.4); Mean Corpuscular HGB Conc 33.1 g/dL (31.6-35.5); Mean Corpuscular Volume 87.5 fL (83.0-100.0); Mean Platelet Volume 10.1 fL (9.4-12.4); Platelet Count 241 K/mcL (140-400); Red Blood Count 3.76 M/mcL (3.82-4.97); White Blood Count 8.6 K/mcL (4.3-11.1)
[2020-11-22 04:46] LABS: Alanine Aminotransferase 11 Units/L (7-52); Albumin 3.2 g/dL (3.5-5.7); Albumin/Globulin Ratio 1.1 (1.1-2.2); Alkaline Phosphatase 119 Units/L (34-104); Aspartate Amino Transferase 15 Units/L (13-39); BUN/Creatinine Ratio 18 (6-26); Bilirubin,Total 0.5 mg/dL (0.3-1.0); Blood Urea Nitrogen 12 mg/dL (6-20); Calcium 8.3 mg/dL (8.6-10.3); Carbon Dioxide 28 mEq/L (23-29); Chloride 102 mEq/L (98-107); Globulin 2.8 g/dL (2.4-3.5); Glucose 92 mg/dL (70-105); Magnesium 1.8 mg/dL (1.6-2.6); Osmolality,Calculated 287 (280-300); Potassium 2.5 mEq/L (3.5-5.1); Sodium 139 mEq/L (136-145); eGFR For African Americans > 60 (> 60); eGFR For Non-African Americans > 60 (> 60)
[2020-11-22] MEDS: *HR* Enoxaparin 40 MG/0.4 ML SYRINGE SQ SCH (06:15)
[2020-11-22] MEDS ORDERED: Potassium Chloride 40 MEQ, Lidocaine 1% 2 ML in 0.9 % Sodium Chloride 500 ML IVPB ONE ×2 (06:48→12:00)
[2020-11-22] MEDS: Acetaminophen 325 MG TABLET PO PRN ×2 (08:03→21:19)
[2020-11-22] MEDS: Gabapentin 300 MG CAPSULE PO SCH ×3 (09:30→20:44)
[2020-11-22] MEDS: lamoTRIgine 25 MG TABLET PO SCH (09:30)
[2020-11-22] MEDS: lamoTRIgine 100 MG TABLET PO SCH (09:30)
[2020-11-22] MEDS: Loratadine 10 MG TABLET PO SCH (09:30)
[2020-11-22] MEDS: Aspirin Enteric Coated 81 MG Tablet PO SCH (09:31)
[2020-11-22] MEDS: FLUoxetine 20 MG CAPSULE PO SCH (09:32)
[2020-11-22] MEDS: Furosemide 20 MG/2 ML VIAL IVP SCH ×2 (09:32→20:45)
[2020-11-22] MEDS: cefTRIAXone 2,000 MG in Water for inj. (sterile) 20 ML IVP SCH (09:32)
[2020-11-22] MEDS: Nicotine 21 MG PATCH.TD24 TD SCH (09:32)
[2020-11-22] MEDS: Azithromycin 500 MG in 0.9 % Sodium Chloride 250 ML IVPB SCH (09:33)
[2020-11-22] MEDS: VALBENAZINE TOSYLATE 80 MG PO SCH (09:42)
[2020-11-22] MEDS ORDERED: Albuterol 2.5 MG/3 ML NEBULIZER IH PRN (14:23)
[2020-11-22] MEDS: Morphine Sulfate 2 MG/ML SYRINGE IVP PRN ×2 (15:34→23:20)
[2020-11-22] MEDS: Ipratropium/Albuterol Neb 3 ML IH SCH ×2 (15:56→21:10)
[2020-11-22] MEDS: Divalproex (24 HR) 500 MG TABLET PO SCH (20:44)
[2020-11-23] MEDS: Ipratropium/Albuterol Neb 3 ML IH SCH ×4 (04:19→21:36)
[2020-11-23 06:30] LABS: Basophils % 0.3 %; Eosinophils # 0.3 K/mcL (0.0-0.6); Eosinophils % 3.7 %; Hematocrit 33.9 % (35.3-44.9); Hemoglobin 10.6 g/dL (11.5-15.4); Immature Granulocytes % 0.7 % (0-4); Lymphocytes # 2.5 K/mcL (0.6-4.6); Lymphocytes % 33.6 %; Mean Corpuscular HGB Conc 31.3 g/dL (31.6-35.5); Mean Corpuscular Volume 89.4 fL (83.0-100.0); Mean Platelet Volume 9.4 fL (9.4-12.4); Monocytes # 0.4 K/mcL (0.0-1.3); Monocytes % 5.4 %; Neutrophils # 4.2 K/mcL (1.6-8.9); Platelet Count 224 K/mcL (140-400); Red Blood Count 3.79 M/mcL (3.82-4.97); Red Cell Distribution Width 15.4 % (11.5-14.5); Segmented Neutrophils % 56.3 %; White Blood Count 7.4 K/mcL (4.3-11.1)
[2020-11-23] MEDS: *HR* Enoxaparin 40 MG/0.4 ML SYRINGE SQ SCH (06:43)
[2020-11-23 07:08] LABS: BUN/Creatinine Ratio 27 (6-26); Blood Urea Nitrogen 15 mg/dL (6-20); Calcium 8.3 mg/dL (8.6-10.3); Carbon Dioxide 24 mEq/L (23-29); Chloride 108 mEq/L (98-107); Glucose 127 mg/dL (70-105); Magnesium 1.8 mg/dL (1.6-2.6); Osmolality,Calculated 290 (280-300); Potassium 3.7 mEq/L (3.5-5.1); Sodium 139 mEq/L (136-145); eGFR For African Americans > 60 (> 60); eGFR For Non-African Americans > 60 (> 60)
[2020-11-23] MEDS: Azithromycin 500 MG in 0.9 % Sodium Chloride 250 ML IVPB SCH (09:33)
[2020-11-23] MEDS: Furosemide 20 MG/2 ML VIAL IVP SCH ×2 (09:33→21:25)
[2020-11-23] MEDS: cefTRIAXone 2,000 MG in Water for inj. (sterile) 20 ML IVP SCH (09:33)
[2020-11-23] MEDS: Nicotine 21 MG PATCH.TD24 TD SCH (09:34)
[2020-11-23] MEDS: Aspirin Enteric Coated 81 MG Tablet PO SCH (09:34)
[2020-11-23] MEDS: Acetaminophen 325 MG TABLET PO PRN (09:34)
[2020-11-23] MEDS: Gabapentin 300 MG CAPSULE PO SCH ×3 (09:34→21:25)
[2020-11-23] MEDS: lamoTRIgine 25 MG TABLET PO SCH (09:35)
[2020-11-23] MEDS: lamoTRIgine 100 MG TABLET PO SCH (09:35)
[2020-11-23] MEDS: Loratadine 10 MG TABLET PO SCH (09:36)
[2020-11-23] MEDS: FLUoxetine 20 MG CAPSULE PO SCH (09:36)
[2020-11-23] MEDS: VALBENAZINE TOSYLATE 80 MG PO SCH (09:37)
[2020-11-23] MEDS: Morphine Sulfate 2 MG/ML SYRINGE IVP PRN (11:20)
[2020-11-23] MEDS: Divalproex (24 HR) 500 MG TABLET PO SCH (21:24)
[2020-11-24 03:34] LABS: Valproate Free 10 ug/mL (7-23); Valproate Total 36 ug/mL (50-125)
[2020-11-24] MEDS: Ipratropium/Albuterol Neb 3 ML IH SCH ×3 (04:13→16:09)
[2020-11-24 04:25] LABS: Basophils % 0.3 %; Eosinophils # 0.3 K/mcL (0.0-0.6); Eosinophils % 3.4 %; Hematocrit 32.9 % (35.3-44.9); Hemoglobin 10.5 g/dL (11.5-15.4); Immature Granulocytes % 0.7 % (0-4); Lymphocytes % 27.9 %; Mean Corpuscular HGB Conc 31.9 g/dL (31.6-35.5); Mean Corpuscular Hemoglobin 29.2 pg (28.0-33.3); Mean Corpuscular Volume 91.4 fL (83.0-100.0); Mean Platelet Volume 9.7 fL (9.4-12.4); Monocytes # 0.4 K/mcL (0.0-1.3); Monocytes % 6.1 %; Neutrophils # 4.5 K/mcL (1.6-8.9); Platelet Count 232 K/mcL (140-400); Red Cell Distribution Width 15.5 % (11.5-14.5); Segmented Neutrophils % 61.6 %; White Blood Count 7.3 K/mcL (4.3-11.1)
[2020-11-24 04:48] LABS: BUN/Creatinine Ratio 17 (6-26); Blood Urea Nitrogen 10 mg/dL (6-20); Calcium 8.2 mg/dL (8.6-10.3); Carbon Dioxide 25 mEq/L (23-29); Chloride 104 mEq/L (98-107); Glucose 103 mg/dL (70-105); Magnesium 1.6 mg/dL (1.6-2.6); Osmolality,Calculated 295 (280-300); Potassium 3.4 mEq/L (3.5-5.1); Sodium 143 mEq/L (136-145); eGFR For African Americans > 60 (> 60); eGFR For Non-African Americans > 60 (> 60)
[2020-11-24] MEDS: Acetaminophen 325 MG TABLET PO PRN (06:20)
[2020-11-24] MEDS: *HR* Enoxaparin 40 MG/0.4 ML SYRINGE SQ SCH (06:22)
[2020-11-24] MEDS: Azithromycin 500 MG in 0.9 % Sodium Chloride 250 ML IVPB SCH (09:44)
[2020-11-24] MEDS ORDERED: Azithromycin 250 MG TABLET PO SCH (09:45)
[2020-11-24] MEDS: Furosemide 20 MG/2 ML VIAL IVP SCH (09:53)
[2020-11-24] MEDS: Aspirin Enteric Coated 81 MG Tablet PO SCH (09:57)
[2020-11-24] MEDS: FLUoxetine 20 MG CAPSULE PO SCH (09:57)
[2020-11-24] MEDS: lamoTRIgine 100 MG TABLET PO SCH (09:57)
[2020-11-24] MEDS: lamoTRIgine 25 MG TABLET PO SCH (09:57)
[2020-11-24] MEDS: Nicotine 21 MG PATCH.TD24 TD SCH (09:57)
[2020-11-24] MEDS: Loratadine 10 MG TABLET PO SCH (09:57)
[2020-11-24] MEDS: Gabapentin 300 MG CAPSULE PO SCH ×2 (09:57→18:11)
[2020-11-24] MEDS: cefTRIAXone 2,000 MG in Water for inj. (sterile) 20 ML IVP SCH ×2 (09:58→10:02)
[2020-11-24 10:17] LABS: Lamictal <0.9 ug/mL (2.5-15.0)
[2020-11-24 10:29] LABS: Valproate % Free 28 % (5-18)
[2020-11-24 18:10] VITALS: BP 137/86
[2020-11-24] MEDS ORDERED: *HR* OxyCODONE/APAP 5/325 TABLET PO ONE (18:10)
[2020-11-26 09:59] LABS: Serine Protease-3 Antibody 2 AU/mL (0-19)
[2020-11-26 13:57] LABS: ANA IgG by ELISA NONE DETECTED (None Detected)
== END 2020-11-24 20:52 | disposition home or self-care (01) | DRG 871 ==
LOC: EMEROOARM 23:20 → 3ANU 23:20
PROVIDERS: ADMIT Internal Medicine; ATTEND Internal Medicine

== ENCOUNTER 2021-01-17 16:18 | Observation (INO) ==
[2021-01-17] MEDS ORDERED: 0.9 % Sodium Chloride 500 ML IVC ONE (16:34)
[2021-01-17 17:04] LABS: Basophils % 0.1 %; Eosinophils % 0.2 %; Hematocrit 43.3 % (35.3-44.9); Hemoglobin 14.1 g/dL (11.5-15.4); Immature Granulocytes % 0.3 % (0-4); Lymphocytes # 1.4 K/mcL (0.6-4.6); Lymphocytes % 15.4 %; Mean Corpuscular HGB Conc 32.6 g/dL (31.6-35.5); Mean Corpuscular Hemoglobin 29.1 pg (28.0-33.3); Mean Corpuscular Volume 89.3 fL (83.0-100.0); Mean Platelet Volume 9.9 fL (9.4-12.4); Monocytes # 0.1 K/mcL (0.0-1.3); Monocytes % 1.5 %; Neutrophils # 7.3 K/mcL (1.6-8.9); Platelet Count 307 K/mcL (140-400); Red Blood Count 4.85 M/mcL (3.82-4.97); Red Cell Distribution Width 16.1 % (11.5-14.5); Segmented Neutrophils % 82.5 %; White Blood Count 8.8 K/mcL (4.3-11.1)
[2021-01-17 17:11] LABS: Prothrombin Time 11.5 Seconds (9.4-12.1)
[2021-01-17 17:14] LABS: Activated Partial Thrombo Time 31.1 Seconds (26.0-36.0)
[2021-01-17 17:16] LABS: Bilirubin,Urine Negative (Negative); Blood,Urine Negative (Negative); Clarity,Urine Clear (Clear); Color,Urine Colorless (Yellow); Glucose,Urine (UA) Normal (Normal); Ketones,Urine Negative (Negative); Leukocyte Esterase,Urine Negative (Negative); Nitrite,Urine Negative (Negative); PH,Urine 6.5 pH Units (5.0-8.0); Protein,Urine Negative (Neg-Trace); Urobilinogen,Urine Normal (Normal)
[2021-01-17 17:23] LABS: Acetaminophen < 10 mcg/mL (10-20); Salicylate 18.4 mg/dL (15.0-30.0); Valproate 52 mcg/mL (50-100)
[2021-01-17 17:26] LABS: Alanine Aminotransferase 6 Units/L (7-52); Alanine Aminotransferase 7 Units/L (7-52); Albumin 3.9 g/dL (3.5-5.7); Albumin/Globulin Ratio 1.3 (1.1-2.2); Albumin/Globulin Ratio 1.4 (1.1-2.2); Alkaline Phosphatase 136 Units/L (34-104); Alkaline Phosphatase 139 Units/L (34-104); Aspartate Amino Transferase 11 Units/L (13-39); Aspartate Amino Transferase 12 Units/L (13-39); BUN/Creatinine Ratio 14 (6-26); Bilirubin,Indirect 0.2 mg/dL (0.0-1.0); Bilirubin,Total 0.2 mg/dL (0.3-1.0); Blood Urea Nitrogen 13 mg/dL (6-20); Calcium 9.2 mg/dL (8.6-10.3); Carbon Dioxide 29 mEq/L (23-29); Chloride 109 mEq/L (98-107); Creatine Kinase 28 Units/L (30-223); Ethanol < 10 mg/dL (Less than 10); Globulin 2.8 g/dL (2.4-3.5); Globulin 2.9 g/dL (2.4-3.5); Glucose 114 mg/dL (70-105); Lipase 19 Units/L (11-82); Magnesium 2.3 mg/dL (1.6-2.6); Osmolality,Calculated 301 (280-300); Potassium 3.6 mEq/L (3.5-5.1); Sodium 145 mEq/L (136-145); Total Protein 6.7 g/dL (6.4-8.9); Total Protein 6.8 g/dL (6.4-8.9); eGFR For African Americans > 60 (> 60); eGFR For Non-African Americans > 60 (> 60)
[2021-01-17 17:34] LABS: Troponin I < 0.03 ng/mL (< 0.04)
[2021-01-17 17:35] LABS: Amphetamine Screen,Urine Negative ng/mL (Cutoff=1000); Barbiturate Screen,Urine Negative ng/mL (Cutoff=200); Benzodiazepines Screen,Urine Negative ng/mL (Cutoff=200); Cannabinoid Screen,Urine Negative ng/mL (Cutoff = 50); Cocaine Screen,Urine Negative ng/mL (Cutoff= 300); Opiate Screen,Urine Negative ng/mL (Cutoff=300); Phencyclidine Screen,Urine Negative ng/mL (Cutoff=25)
[2021-01-17 17:49] LABS: Influenza A PCR Negative (Negative); Influenza B PCR Negative (Negative); Resp. Syncytial Virus PCR Negative (Negative)
[2021-01-17 17:59] LABS: SARS-CoV-2 by PCR (In House) Negative (Negative)
[2021-01-17 18:57] LABS: ABG Base Excess 3 mEq/L (-2 to 3); ABG HCO3 28 mEq/L (21-27); ABG Oxygen Saturation 93 % (95-98); ABG PCO2 41 mmHg (35-45); ABG PH 7.44 pH Units (7.32-7.45); ABG PO2 66 mmHg (85-104); ABG TCO2 29 mEq/L (20-26)
[2021-01-17] MEDS ORDERED: Naloxone 0.4 MG/ML INJ IVP PRN (20:28)
[2021-01-17] MEDS ORDERED: Ondansetron 4 MG/2 ML VIAL IVP PRN (20:28)
[2021-01-17] MEDS ORDERED: 0.9 % Sodium Chloride 1,000 ML IVC SCH (20:30)
[2021-01-17] MEDS: *HR* Heparin 5,000 UNIT/ML VIAL SQ SCH (21:42)
[2021-01-18 00:53] LABS: Hematocrit 38.5 % (35.3-44.9); Mean Corpuscular HGB Conc 31.9 g/dL (31.6-35.5); Mean Corpuscular Hemoglobin 28.6 pg (28.0-33.3); Mean Corpuscular Volume 89.5 fL (83.0-100.0); Mean Platelet Volume 10.2 fL (9.4-12.4); Platelet Count 253 K/mcL (140-400); Red Cell Distribution Width 16.3 % (11.5-14.5)
[2021-01-18 00:56] LABS: Hemoglobin 12.3 g/dL (11.5-15.4)
[2021-01-18 01:10] LABS: BUN/Creatinine Ratio 17 (6-26); Blood Urea Nitrogen 14 mg/dL (6-20); Calcium 8.1 mg/dL (8.6-10.3); Carbon Dioxide 27 mEq/L (23-29); Chloride 110 mEq/L (98-107); Glucose 118 mg/dL (70-105); Osmolality,Calculated 302 (280-300); Potassium 3.4 mEq/L (3.5-5.1); Sodium 145 mEq/L (136-145); eGFR For African Americans > 60 (> 60); eGFR For Non-African Americans > 60 (> 60)
[2021-01-18] MEDS: *HR* Heparin 5,000 UNIT/ML VIAL SQ SCH ×3 (06:02→23:02)
[2021-01-18] MEDS ORDERED: Cyanocobalamin (B-12) 1,000 MCG TABLET PO SCH (09:00)
[2021-01-18] MEDS ORDERED: lamoTRIgine 25 MG TABLET PO SCH (10:00)
[2021-01-18] MEDS ORDERED: lamoTRIgine 100 MG TABLET PO SCH (10:00)
[2021-01-18] MEDS ORDERED: Valbenazine Tosylate [Ingrezza] 80 MG Capsule PO SCH (10:00)
[2021-01-18] MEDS ORDERED: Furosemide 20 MG TABLET PO PRN (14:30)
[2021-01-18] MEDS ORDERED: clonazePAM 0.5 MG TABLET PO PRN (14:30)
[2021-01-18] MEDS ORDERED: FLUoxetine 20 MG CAPSULE PO SCH (14:30)
[2021-01-18] MEDS ORDERED: Fluconazole 100 MG TABLET PO SCH (14:30)
[2021-01-18] MEDS ORDERED: Ondansetron ODT 4 MG TAB.RAPDIS PO PRN (14:30)
[2021-01-18] MEDS ORDERED: Albuterol 2.5 MG/3 ML NEBULIZER IH PRN (14:30)
[2021-01-18] MEDS ORDERED: hydrOXYzine pamoate 25 MG CAPSULE PO PRN (14:30)
[2021-01-18] MEDS: Gabapentin 300 MG CAPSULE PO SCH ×2 (14:58→20:26)
[2021-01-18] MEDS: *HR* OxyCODONE/APAP 5/325 TABLET PO PRN (15:01)
[2021-01-18] MEDS ORDERED: Nicotine 21 MG PATCH.TD24 TD SCH (15:15)
[2021-01-18] MEDS: Benzonatate 100 MG CAPSULE PO PRN (16:04)
[2021-01-18] MEDS ORDERED: Divalproex (24 HR) 500 MG TABLET PO SCH (21:00)
[2021-01-18] MEDS ORDERED: Nystatin SUSP 5 ML UD.LIQ PO SCH (21:00)
[2021-01-18] MEDS ORDERED: OLODATEROL HCL AER SCH (22:00)
[2021-01-18] MEDS ORDERED: TIOTROPIUM BR AER SCH (22:00)
[2021-01-18 23:00] VITALS: TEMP 97.8
[2021-01-19 02:10] VITALS: BP 150/81; PULSE 52; O2SAT 90
[2021-01-19] MEDS: Benzonatate 100 MG CAPSULE PO PRN (02:39)
[2021-01-19] MEDS: *HR* OxyCODONE/APAP 5/325 TABLET PO PRN (02:40)
[2021-01-19] MEDS: *HR* Heparin 5,000 UNIT/ML VIAL SQ SCH (05:06)
[2021-01-19] MEDS ORDERED: predniSONE 10 MG TABLET PO SCH (09:00)
[2021-01-19] MEDS ORDERED: Aspirin 325 MG TABLET PO SCH (09:00)
[2021-01-19] MEDS ORDERED: Loratadine 10 MG TABLET PO SCH (09:00)
[2021-01-20 07:07] LABS: Lamictal 1.5 ug/mL (2.5-15.0)
== END 2021-01-19 08:31 | disposition home or self-care (01) ==
LOC: 3BNU 16:18 → EMEROOARM 16:18 → SUATTDRO 19:08 → 3BNU 19:58
PROVIDERS: ADMIT Student in an Organized Health Care Education/Training Program; ATTEND Internal Medicine

== ENCOUNTER 2021-03-13 16:29 | Inpatient (IN) ==
[2021-03-13] MEDS ORDERED: Naloxone 0.4 MG/ML INJ IVP ONE (17:00)
[2021-03-13 17:55] LABS: Bilirubin,Urine Negative (Negative); Blood,Urine Trace (Negative); Clarity,Urine Turbid (Clear); Color,Urine Yellow (Yellow); Glucose,Urine (UA) Normal (Normal); Ketones,Urine 60 mg/dL (Negative); Leukocyte Esterase,Urine Small (Negative); Mucus,Urine Many per lpf (None-Few); Nitrite,Urine Positive (Negative); Protein,Urine 100 mg/dL (Neg-Trace); Specific Gravity,Urine 1.025 (1.010-1.025); Squamous Epithelial Cell,Urine Few per hpf (None-Few); Urobilinogen,Urine >=8.0 mg/dL (Normal); WBC,Urine 15-30 per hpf (0-3)
[2021-03-13 18:04] LABS: Basophils % 0.3 %; Eosinophils % 0.2 %; Hematocrit 45.9 % (35.3-44.9); Hemoglobin 15.1 g/dL (11.5-15.4); Immature Granulocytes % 0.3 % (0-4); Lymphocytes # 2.6 K/mcL (0.6-4.6); Lymphocytes % 24.5 %; Mean Corpuscular HGB Conc 32.9 g/dL (31.6-35.5); Mean Corpuscular Hemoglobin 29.1 pg (28.0-33.3); Mean Corpuscular Volume 88.4 fL (83.0-100.0); Mean Platelet Volume 9.8 fL (9.4-12.4); Monocytes % 9.1 %; Neutrophils # 6.9 K/mcL (1.6-8.9); Platelet Count 255 K/mcL (140-400); Red Blood Count 5.19 M/mcL (3.82-4.97); Red Cell Distribution Width 15.1 % (11.5-14.5); Segmented Neutrophils % 65.6 %; White Blood Count 10.5 K/mcL (4.3-11.1)
[2021-03-13 18:15] LABS: Troponin I < 0.03 ng/mL (< 0.04)
[2021-03-13 18:21] LABS: Alanine Aminotransferase 8 Units/L (7-52); Albumin/Globulin Ratio 1.4 (1.1-2.2); Alkaline Phosphatase 128 Units/L (34-104); Aspartate Amino Transferase 18 Units/L (13-39); BUN/Creatinine Ratio 16 (6-26); Bilirubin,Direct 0.1 mg/dL (0.0-0.2); Bilirubin,Indirect 0.4 mg/dL (0.0-1.0); Bilirubin,Total 0.5 mg/dL (0.3-1.0); Blood Urea Nitrogen 12 mg/dL (6-20); Calcium 9.3 mg/dL (8.6-10.3); Carbon Dioxide 27 mEq/L (23-29); Chloride 103 mEq/L (98-107); Ethanol < 10 mg/dL (Less than 10); Globulin 2.8 g/dL (2.4-3.5); Glucose 139 mg/dL (70-105); Osmolality,Calculated 298 (280-300); Potassium 2.7 mEq/L (3.5-5.1); Sodium 143 mEq/L (136-145); Total Protein 6.8 g/dL (6.4-8.9); Valproate < 4 mcg/mL (50-100); eGFR For African Americans > 60 (> 60); eGFR For Non-African Americans > 60 (> 60)
[2021-03-13] MEDS ORDERED: Potassium Chloride Elixir 20 MEQ/15 ML UDC PO ONE (18:45)
[2021-03-13] MEDS ORDERED: cefTRIAXone 1,000 MG in Water for inj. (sterile) 10 ML IVP ONE (18:48)
[2021-03-13 20:28] LABS: Amphetamine Screen,Urine Negative ng/mL (Cutoff=1000); Barbiturate Screen,Urine Negative ng/mL (Cutoff=200); Benzodiazepines Screen,Urine Negative ng/mL (Cutoff=200); Cannabinoid Screen,Urine Negative ng/mL (Cutoff = 50); Cocaine Screen,Urine Negative ng/mL (Cutoff= 300); Opiate Screen,Urine Negative ng/mL (Cutoff=300); Phencyclidine Screen,Urine Negative ng/mL (Cutoff=25)
[2021-03-13] MEDS ORDERED: Ondansetron 4 MG/2 ML VIAL IVP PRN (20:41)
[2021-03-13] MEDS ORDERED: Naloxone 0.4 MG/ML INJ IVP PRN (20:41)
[2021-03-13] MEDS ORDERED: Acetaminophen 325 MG TABLET PO PRN (20:41)
[2021-03-13] MEDS ORDERED: 0.9 % Sodium Chloride 1,000 ML IVC SCH (20:45)
[2021-03-13 21:20] LABS: Thyroid Stimulating Hormone 1.863 mcIU/mL (0.340-5.600)
[2021-03-13] MEDS: *HR* Heparin 5,000 UNIT/ML VIAL SQ SCH (23:46)
[2021-03-14] MEDS ORDERED: Potassium Chloride Elixir 20 MEQ/15 ML UDC PO ONE ×2 (02:55→13:52)
[2021-03-14] MEDS: *HR* Heparin 5,000 UNIT/ML VIAL SQ SCH ×3 (05:11→20:32)
[2021-03-14] MEDS ORDERED: Albuterol 2.5 MG/3 ML NEBULIZER IH PRN (09:02)
[2021-03-14] MEDS ORDERED: hydrOXYzine pamoate 25 MG CAPSULE PO PRN (09:02)
[2021-03-14] MEDS: Loratadine 10 MG TABLET PO SCH (09:42)
[2021-03-14] MEDS: lamoTRIgine 100 MG TABLET PO SCH (09:42)
[2021-03-14] MEDS: lamoTRIgine 25 MG TABLET PO SCH (09:42)
[2021-03-14] MEDS: FLUoxetine 20 MG CAPSULE PO SCH (09:42)
[2021-03-14] MEDS: Aspirin 325 MG TABLET PO SCH (09:42)
[2021-03-14] MEDS: Cyanocobalamin (B-12) 1,000 MCG TABLET PO SCH (09:43)
[2021-03-14] MEDS: Tiotropium 10 INH DOSE IH SCH (10:15)
[2021-03-14 10:21] LABS: Hematocrit 43.8 % (35.3-44.9); Hemoglobin 14.4 g/dL (11.5-15.4); Mean Corpuscular HGB Conc 32.9 g/dL (31.6-35.5); Mean Corpuscular Hemoglobin 29.4 pg (28.0-33.3); Mean Corpuscular Volume 89.6 fL (83.0-100.0); Mean Platelet Volume 9.6 fL (9.4-12.4); Platelet Count 217 K/mcL (140-400); Red Blood Count 4.89 M/mcL (3.82-4.97); Red Cell Distribution Width 15.5 % (11.5-14.5); White Blood Count 7.9 K/mcL (4.3-11.1)
[2021-03-14] MEDS: estradioL 0.5 MG TABLET PO SCH (10:31)
[2021-03-14 10:41] LABS: BUN/Creatinine Ratio 25 (6-26); Blood Urea Nitrogen 16 mg/dL (6-20); Calcium 8.9 mg/dL (8.6-10.3); Carbon Dioxide 29 mEq/L (23-29); Chloride 108 mEq/L (98-107); Glucose 104 mg/dL (70-105); Magnesium 2.3 mg/dL (1.6-2.6); Osmolality,Calculated 301 (280-300); Potassium 3.2 mEq/L (3.5-5.1); Sodium 145 mEq/L (136-145); eGFR For African Americans > 60 (> 60); eGFR For Non-African Americans > 60 (> 60)
[2021-03-14] MEDS: clonazePAM 0.5 MG TABLET PO PRN (13:15)
[2021-03-14] MEDS: cefTRIAXone 1,000 MG in Water for inj. (sterile) 10 ML IVP SCH (16:07)
[2021-03-14] MEDS: *HR* OxyCODONE/APAP 5/325 TABLET PO PRN (20:30)
[2021-03-14] MEDS: Divalproex (24 HR) 500 MG TABLET PO SCH (20:31)
[2021-03-14] MEDS: Mirtazapine 15 MG TABLET PO SCH (20:31)
[2021-03-15 01:29] LABS: Basophils % 0.2 %; Eosinophils # 0.2 K/mcL (0.0-0.6); Hematocrit 42.3 % (35.3-44.9); Hemoglobin 13.6 g/dL (11.5-15.4); Immature Granulocytes % 0.3 % (0-4); Lymphocytes # 3.9 K/mcL (0.6-4.6); Lymphocytes % 33.2 %; Mean Corpuscular HGB Conc 32.2 g/dL (31.6-35.5); Mean Corpuscular Volume 90.2 fL (83.0-100.0); Mean Platelet Volume 10.1 fL (9.4-12.4); Monocytes # 0.7 K/mcL (0.0-1.3); Monocytes % 5.6 %; Neutrophils # 6.9 K/mcL (1.6-8.9); Platelet Count 235 K/mcL (140-400); Red Blood Count 4.69 M/mcL (3.82-4.97); Red Cell Distribution Width 15.9 % (11.5-14.5); Segmented Neutrophils % 58.7 %; White Blood Count 11.8 K/mcL (4.3-11.1)
[2021-03-15 01:48] LABS: BUN/Creatinine Ratio 29 (6-26); Blood Urea Nitrogen 24 mg/dL (6-20); Calcium 9.1 mg/dL (8.6-10.3); Carbon Dioxide 28 mEq/L (23-29); Chloride 104 mEq/L (98-107); Glucose 119 mg/dL (70-105); Magnesium 2.1 mg/dL (1.6-2.6); Osmolality,Calculated 299 (280-300); Phosphorous 4.7 mg/dL (2.7-4.5); Potassium 3.1 mEq/L (3.5-5.1); Sodium 142 mEq/L (136-145); eGFR For African Americans > 60 (> 60); eGFR For Non-African Americans > 60 (> 60)
[2021-03-15] MEDS: *HR* Heparin 5,000 UNIT/ML VIAL SQ SCH ×3 (05:10→22:13)
[2021-03-15] MEDS: Cyanocobalamin (B-12) 1,000 MCG TABLET PO SCH (09:26)
[2021-03-15] MEDS: Aspirin 325 MG TABLET PO SCH (09:27)
[2021-03-15] MEDS: FLUoxetine 20 MG CAPSULE PO SCH (09:27)
[2021-03-15] MEDS: Loratadine 10 MG TABLET PO SCH (09:27)
[2021-03-15] MEDS: estradioL 0.5 MG TABLET PO SCH (09:27)
[2021-03-15] MEDS: *HR* OxyCODONE/APAP 5/325 TABLET PO PRN ×3 (09:30→22:13)
[2021-03-15] MEDS: lamoTRIgine 25 MG TABLET PO SCH (09:33)
[2021-03-15] MEDS: lamoTRIgine 100 MG TABLET PO SCH (09:34)
[2021-03-15] MEDS: Tiotropium 10 INH DOSE IH SCH (10:48)
[2021-03-15] MEDS: cefTRIAXone 1,000 MG in Water for inj. (sterile) 10 ML IVP SCH (16:23)
[2021-03-15] MEDS: Mirtazapine 15 MG TABLET PO SCH (22:13)
[2021-03-15] MEDS: Divalproex (24 HR) 500 MG TABLET PO SCH (22:14)
[2021-03-16] MEDS: *HR* Heparin 5,000 UNIT/ML VIAL SQ SCH ×3 (06:29→19:50)
[2021-03-16] MEDS: *HR* OxyCODONE/APAP 5/325 TABLET PO PRN ×3 (06:36→19:55)
[2021-03-16] MEDS: Tiotropium 10 INH DOSE IH SCH (07:46)
[2021-03-16] MEDS: lamoTRIgine 100 MG TABLET PO SCH (09:07)
[2021-03-16] MEDS: Loratadine 10 MG TABLET PO SCH (09:07)
[2021-03-16] MEDS: Cyanocobalamin (B-12) 1,000 MCG TABLET PO SCH (09:07)
[2021-03-16] MEDS: lamoTRIgine 25 MG TABLET PO SCH (09:07)
[2021-03-16] MEDS: estradioL 0.5 MG TABLET PO SCH (09:07)
[2021-03-16] MEDS: Aspirin 325 MG TABLET PO SCH (09:07)
[2021-03-16] MEDS: FLUoxetine 20 MG CAPSULE PO SCH (09:08)
[2021-03-16] MEDS: cefTRIAXone 1,000 MG in Water for inj. (sterile) 10 ML IVP SCH (16:25)
[2021-03-16] MEDS: Divalproex (24 HR) 500 MG TABLET PO SCH (19:54)
[2021-03-16] MEDS: clonazePAM 0.5 MG TABLET PO PRN (19:55)
[2021-03-16] MEDS: Mirtazapine 15 MG TABLET PO SCH (19:55)
[2021-03-17] MEDS: *HR* Heparin 5,000 UNIT/ML VIAL SQ SCH (05:02)
[2021-03-17 07:00] VITALS: BP 112/71; PULSE 63; TEMP 98
[2021-03-17] MEDS: estradioL 0.5 MG TABLET PO SCH (07:32)
[2021-03-17] MEDS: lamoTRIgine 100 MG TABLET PO SCH (07:32)
[2021-03-17] MEDS: FLUoxetine 20 MG CAPSULE PO SCH (07:32)
[2021-03-17] MEDS: Aspirin 325 MG TABLET PO SCH (07:32)
[2021-03-17] MEDS: Cyanocobalamin (B-12) 1,000 MCG TABLET PO SCH (07:32)
[2021-03-17] MEDS: Loratadine 10 MG TABLET PO SCH (07:32)
[2021-03-17] MEDS: lamoTRIgine 25 MG TABLET PO SCH (07:33)
[2021-03-17] MEDS: Tiotropium 10 INH DOSE IH SCH (07:42)
[2021-03-17 12:45] VITALS: O2SAT 94
== END 2021-03-17 11:02 | disposition home or self-care (01) | DRG 689 ==
LOC: 3BNU 16:29 → EMEROOARM 16:29 → SUATTDRO 22:03 → 3BNU 03-14 00:09 → SUATTDRO 03-15 14:19
PROVIDERS: ADMIT Internal Medicine; ATTEND Internal Medicine